=== PATIENT | male | born 1940 | race Caucasian/White ===

== ENCOUNTER 2020-07-08 11:49 | Emergency (ER) | payer MEDICARE, OTHER, SELFPAY ==
[2020-07-08 11:52] VITALS: BP 136/72; PULSE 50; RESP 15; TEMP 36.5; O2SAT 98
--- NOTE | 2020-07-08 12:09 | ED.GENADUL_ITS ---
Discharge Plan Disposition Patient Disposition: HOME Condition: Stable Discharge Details Clinical Impression: Rash Primary Care Provider: None,None ED Provider: Quinn Lara Home Meds and New Rx's Prescriptions: New doxycycline hyclate 100 mg tablet 100 mg PO BID Qty: 28 RF: 0 Continued timolol-latanoprost(PF) 0.5-0.005 % Drops OPHTHALMIC (EYE) BID RF: 0 Discharge Instructions Additional Instructions: Your exam is consistent with a likely skin reaction/irritation from the bite there is no indication of a skin infection or lyme disease if the tick panel test is positive start taking the doxycycline IF you do not get a call with results in 3 days you can call [phone] to see if the tick panel blood test is done and what the results are if you feel more ill, have fevers or difficulty breathing return to the emergency department Medical Decision Making 80 yo male comes in after he removed a tick from his left forearm Sunday. He states it couldn't have been attached more than an hour. He has a small area of redness about 1cm in diameter where the tick was. It has mild erythema and not warm to touch and no bulls eye appearance and no tenderness. He has no fevers body aches or other symptoms. It appears to be a local dermatitis, no findings to suggest cellulitis and no symptoms or bulls eye rash so doubt EM and given only an hour of attachment at most doubt tick born illness such as lyme. Discussed with the patient and at this time will send tick panel and hold on oral antibiotics and he declines any mupirocin which I feel is reasonable given no findings to suggest folliculitis. I will provide paper prescription for the patient for doxy if the tick panel returns positive he would be able to start it and that if he is not contacted within 3 days with results he should call [facility] for results. Return precautions given Differential Diagnosis Differential Diagnosis: dermatitis, cellulitis, tick born illness HPI General Mode of arrival: ambulatory . Date/Time Provider Initiated Documentation: 07/08/20 12:00 . Limitations to Documentation: no limitations . Information obtained by: patient . History of Present Illness 80 year old M presents to the emergency department with the chief complaint of right forearm rash, described as moderate, Patient started experiencing this day(s) (1) and it has been constant. No relieving factors improve symptom(s), No exacerbating factors reported . Patient notes no other symptoms.. Patient did receive the following treatments prior to arrival, none Related Data Home Medications Medication Instructions Recorded Confirmed doxycycline hyclate 100 mg PO BID #28 tab 07/08/20 timolol-latanoprost(PF) drp OPHTHALMIC (EYE) BID 07/08/20 Previous Rx's Medication Instructions Recorded doxycycline hyclate 100 mg PO BID #28 tab 07/08/20 Allergies Allergy/AdvReac Type Severity Reaction Status Date / Time Quinolones Allergy Unverified 07/08/20 12:11 General Stated Complaint: RashLesion ELLIOTT: 4 Review of Systems All systems reviewed & are unremarkable except as noted in HPI and below Constitutional Constitutional: Denies chills, Denies fever(s) and Denies weakness Cardiovascular Cardiovascular: Denies chest pain and Denies dyspnea Respiratory Respiratory: Denies cough and Denies dyspnea Gastrointestinal Gastrointestinal: Denies abdominal pain, Denies nausea and Denies vomiting Musculoskeletal Musculoskeletal: Denies joint swelling Neurologic Neurologic: Denies weakness Psychiatric Psychiatric: Denies depression PFS Social History Smoking/Tobacco Use Status: Never Smoking risk assessment performed?: Yes Alcohol Intake: current Alcohol Intake frequency: a few times a month Drug use: Never Exam Const General: no acute distress Orientation: alert HENMT Head: normal to inspection Ears: external ears normal General nose exam: external nose normal Mouth: moist mucous membranes Eyes General: appearance normal, both eyes and all related structures Neck Neck: normal visual inspection Resp Effort & Inspection: normal respiratory effort and able to speak in complete sentences Cardio Rate: regular rate Skin General skin exam: elasticity normal Neuro General: patient alert and patient oriented x3 Extrem General: normal to inspection Psych Mental Status: mental status grossly normal Course Vital Signs Vital signs: Vital Signs Temperature 36.5 C 07/08/20 11:52 Pulse 50 L 07/08/20 11:52 Respiratory Rate 15 07/08/20 11:52 Blood Pressure 136/72 07/08/20 11:52 Pulse Oximetry 98 07/08/20 11:52 Temperature 36.5 C 07/08/20 11:52 Temperature Source Temporal Artery Scan 07/08/20 11:52 Pulse 50 L 07/08/20 11:52 Respiratory Rate 15 07/08/20 11:52 Respiratory Effort Non-Labored 07/08/20 11:58 Blood Pressure 136/72 07/08/20 11:52 Blood Pressure Position Sitting 07/08/20 11:52 Pulse Oximetry 98 07/08/20 11:52 Oxygen Delivery Method Room Air 07/08/20 11:52 Oxygen Flow Rate 0 07/08/20 11:52 Pain Level 0 07/08/20 11:52
[2020-07-09 10:47] LABS: Lyme Ab w Rflx to Lyme Confirm Negative (Negative)
[2020-07-11 00:34] LABS: Anaplasma phagocytophilum Negative (Negative); B. miyamotoi PCR Negative (Negative); Babesia divergens/MO-1 Negative (Negative); Babesia duncani Negative (Negative); Babesia microti Negative (Negative); Ehrlichia chaffeensis Negative (Negative); Ehrlichia ewingii/canis Negative (Negative); Ehrlichia muris eauclairensis Negative (Negative)
--- NOTE | 2020-07-12 10:26 | NUR.NOTE ---
Nursing Note: Patient called asking for lyme and tick panel results. Reviewed the results with FRANK Valverde and patient was told that they were all negative. July Méndez
== END 2020-07-08 12:40 | disposition home or self-care (01) ==
LOC: ER 12:57
PROVIDERS: Emergency Provider Emergency Medicine
DX: R21 Rash and other nonspecific skin eruption (principal); S50.861A Insect bite (nonvenomous) of right forearm, initial encounter; W57.XXXA Bitten or stung by nonvenomous insect and other nonvenomous arthropods, initial encounter
CPT/HCPCS: 87798; 99283; 86618

== ENCOUNTER 2022-10-11 13:01 | Emergency (ER) | payer MEDICARE, SELFPAY ==
[2022-10-11 13:10] VITALS: BP 138/89; PULSE 77; RESP 16; TEMP 36.6; O2SAT 98
--- NOTE | 2022-10-11 13:15 | DI.RAD_ITS ---
Exam(s) XR CHEST 2V PA LATERAL EXAM: XR CHEST 2V PA LATERAL CLINICAL HISTORY: post covid malaise TECHNIQUE: 2D digital imaging was performed of the chest. Two images were obtained. PA and lateral views were obtained. COMPARISON: No exams were available for comparison FINDINGS: MEDIASTINUM: Normal. HEART: Normal. PULMONARY VASCULATURE: Normal. LUNGS: Clear. PLEURAL SPACE: No pleural effusion or pneumothorax. BONE:Within normal limits for the patient's age. OTHER FINDINGS:Normal. IMPRESSION: No acute pulmonary findings. DATA REPOSITORY: RADIATION DOSE DELIVERED:
--- NOTE | 2022-10-11 13:15 | RT.EKG_ITS ---
APPROVED REPORT Exam: Resting ECG Reason for Exam: Covid Patient Location: E HR:65 bpm ECG Measurements Heart Rate 65 AXIS AL 169 P 65 QRSd 99 QRS 89 QT 402 T 66 QTc 416 Conclusion Sinus rhythm..., V-rate 60- 99 Atrial premature complexes...SV complexes w/ short R-R intvls Appropriate intervals. No ST segment or T wave abnormalities to suggest occlusive NE
--- NOTE | 2022-10-11 13:19 | ED.GENADUL_ITS ---
Discharge Plan Disposition Patient Disposition: Home Condition: Good Discharge Details Chief Complaint: GenMedical Clinical Impression: Malaise Primary Care Provider: None,None ED Provider: Tamia Welch Home Meds and New Rx's Prescriptions: No Action timolol-latanoprost(PF) 0.5-0.005 % Drops OPHTHALMIC (EYE) BID doxycycline hyclate 100 mg tablet 100 mg PO BID Qty: 28 0RF Discharge Instructions Instructions: COVID-19 (Coronavirus Disease 2019) (ED) Additional Instructions: Call your primary care doctor today to schedule an appointment within one week to follow up on your visit here. Mention that your sodium was slightly low (133). Return to the emergency department for new or worsening symptoms including new/different/worse pain, difficulty breathing, or if you have any other concerns. Medical Decision Making Previously healthy 82 year old male denies prior medical conditions presents for persistent malaise post-COVID. COVID + 09/29, completed paxlovid 09/30- 10/04, rebound symptoms starting 10/06. General malaise and chest tightness since then, as well as less appetite than usual though he is keeping up with fluids. Vital signs reassuring with no tachycardia or hypoxia. Very well appearing and appears significantly younger than stated age. Suspect likely post-viral syndrome however given age well evaluate further with labs and CXR. Low suspicion for acute coronary syndrome; no tachycardia, hypoxia, or pleuritic pain to suggest pulmonary embolism, would not pursue further. EKG sinus rhythm no abnormalities to suggest occlusive GA or right heart strain. CBC normal with no leukocytosis or anemia, CMP reassuring, mild hyonatremia at 133 (would not workup or treat further on an emergent basis; advised PCP followup). Troponin normal; given persistent symptoms x several days not concerned for acute coronary syndrome and will not trend. CXR independently reviewed, no focal pneumonia on my view, agree with radiology read below. On reassessment patient remains well appearing with reassuring vital signs. Suspect post-viral/COVID malaise with reassuring workup here. Discharged home; discharge instructions including return precautions were reviewed with patient who verbalized understanding. Alll questions were answered and they are in full agreement with the plan. Imaging Data Radiologic Study: Imaging: X-Ray Radiologist's impression: IMPRESSION: No acute pulmonary findings Lab Data Lab results reviewed: Yes I reviewed the patient's lab results. Labs: Laboratory Tests Range/Units 10/11/22 10/11/22 13:20 13:20 WBC (4.4-10.8) 10^3/uL 6.61 RBC (4.36-5.78) 10^6/uL 4.72 Hgb (13.5-17.5) g/dL 14.8 Hct (40.0-50.0) % 42.3 MCV (80-95) fL 90 MCH (27.0-33.0) pg 31.4 MCHC (32.0-36.0) % 35.0 RDW (11.8-14.1) % 11.9 Plt Count (130-400) 10^3/uL 148 MPV (8.0-11.0) fL 11.0 Immature Gran % 0.3 Neutrophils % 54.1 Lymphocytes % 34.9 Monocytes % 8.9 Eosinophils % 1.2 Basophils % 0.6 Nucleated RBC % (0.0-0.3) % 0.0 Absolute Neutrophils (1.2-6.7) 10^3/uL 3.57 Absolute Lymphocytes (1.2-3.4) 10^3/uL 2.31 Absolute Monocytes (0.1-0.8) 10^3/uL 0.59 Absolute Eosinophils (0.0-0.7) 10^3/uL 0.08 Absolute Basophils (0.0-0.2) 10^3/uL 0.04 Sodium (136-145) mmol/L 133 L Potassium (3.5-5.1) mmol/L 4.0 Chloride (98-107) mmol/L 100 Carbon Dioxide (21.0-32.0) mmol/L 25.6 Anion Gap (3-11) mmol/L 7.4 BUN (7-18) mg/dL 17 Creatinine (0.70-1.30) mg/dL 1.1 Est GFR (CKD-EPI 2020) (mL/min/1.73m2) 67.86 Glucose (74-106) mg/dL 102 Calcium (8.5-10.1) mg/dL 8.7 Total Bilirubin (0.2-1.0) mg/dL 0.9 AST (15-37) U/L 24 ALT (16-63) U/L 28 Alkaline Phosphatase (46-116) U/L 67 Troponin I (<or=60) ng/L < 50 Total Protein (6.4-8.2) g/dL 7.7 Albumin (3.4-5.0) g/dL 3.8 HPI General Mode of arrival: ambulatory . Date/Time Provider Initiated Documentation: 10/11/22 13:08 . Limitations to Documentation: no limitations . Information obtained by: patient . HPI Narrative: Previously healthy 82 year old male denies prior medical conditions presents for persisent malaise post-COVID. Developed URI symptoms after flight; tested positive for Covid on Sep 29. Completed 5 day course of paxlovid. Symptoms improved on paxlovid. On 10/06 began to feel unwell; general fatigue and body aches as well as mild chest tightness which has been persistent since 10/06. No fevers, chills, rash, shortness of breath, palpitations, presyncope, LE edema, pleuritic pain, nausea, vomiting, abdominal pain, or other concerns. He is otherwise in his usual state of health. Related Data Home Medications Medication Instructions Recorded Confirmed doxycycline hyclate 100 mg tablet 100 mg PO BID #28 tabs 07/08/20 timolol 0.5 %-latanoprost 0.005 % drp ophthalmic (eye) BID 07/08/20 (PF) eye drops Previous Rx's Medication Instructions Recorded doxycycline hyclate 100 mg tablet 100 mg PO BID #28 tabs 07/08/20 Allergies Allergy/AdvReac Type Severity Reaction Status Date / Time Quinolones Allergy Unverified 07/08/20 12:11 General Stated Complaint: GenMedical ELLIOTT: 3 Review of Systems Narrative: see HPI PFSH All Active Problems (Updated 10/11/22 @ 14:20 by Tamia Welch MD) Rash (Acute) Malaise (Acute) Social History Smoking/Tobacco Use Status: Never Smoking risk assessment performed?: Yes Alcohol Intake: current Alcohol Intake frequency: a few times a month Drug use: Never Do you feel safe at home: Yes Do you feel safe in your relationship?: Yes Exam Narrative Exam Narrative: General: Alert, well appearing, well nourished, in no acute distress. Appears younger than stated age. Head: Normocephalic, atraumatic Neck: Trachea midline, Neck supple. ENT: MMM. No oropharygeal lesions or exudate. Cardiac: RRR, no murmurs appreciated Resp: No respiratory distress. CTAB. Abd: Soft, non-distended, nontender : No suprapubic tenderness. Extremities: No deformities. No peripheral edema. Neurologic: GCS 15. Moves all extremities freely against gravity Course Vital Signs Vital signs: Vital Signs Temperature 36.6 C 10/11/22 13:10 Pulse 77 10/11/22 13:10 Respiratory Rate 16 10/11/22 13:10 Blood Pressure 138/89 10/11/22 13:10 Pulse Oximetry 98 10/11/22 13:10 Temperature 36.6 C 10/11/22 13:10 Pulse 77 10/11/22 13:10 Respiratory Rate 16 10/11/22 13:10 Blood Pressure 138/89 10/11/22 13:10 Pulse Oximetry 98 10/11/22 13:10 Oxygen Delivery Method Room Air 10/11/22 13:10 Oxygen Flow Rate 0 10/11/22 13:10
[2022-10-11 13:30] VITALS: RESP 18
[2022-10-11 13:36] LABS: Abs Immature Grans 0.02 10^3/uL (0.0-0.06); Absolute Basophil Count 0.04 10^3/uL (0.0-0.2); Absolute Eosinophil Count 0.08 10^3/uL (0.0-0.7); Absolute Lymphocyte Count 2.31 10^3/uL (1.2-3.4); Absolute Monocyte Count 0.59 10^3/uL (0.1-0.8); Absolute Neutrophil Count 3.57 10^3/uL (1.2-6.7); Basophils % 0.6; Eosinophils % 1.2; HCT 42.3 % (40.0-50.0); HGB 14.8 g/dL (13.5-17.5); Immature Grans % 0.3; Lymphocytes % 34.9; MCH 31.4 pg (27.0-33.0); MCV 90 fL (80-95); Monocytes % 8.9; Neutrophils % 54.1; Platelet Count 148 10^3/uL (130-400); RBC 4.72 10^6/uL (4.36-5.78); RDW 11.9 % (11.8-14.1); RDW-SD 39.4 fL; WBC 6.61 10^3/uL (4.4-10.8)
[2022-10-11 14:07] LABS: ALT 28 U/L (16-63); AST 24 U/L (15-37); Albumin 3.8 g/dL (3.4-5.0); Alkaline Phosphatase 67 U/L (46-116); Anion Gap 7.4 mmol/L (3-11); BUN 17 mg/dL (7-18); Bilirubin, Total 0.9 mg/dL (0.2-1.0); CO2 25.6 mmol/L (21.0-32.0); CREATININE 1.1 mg/dL (0.70-1.30); Calcium 8.7 mg/dL (8.5-10.1); Chloride 100 mmol/L (98-107); Estimated GFR 67.86 (mL/min/1.73m2); Glucose 102 mg/dL (74-106); Sodium 133 mmol/L (136-145); Total Protein 7.7 g/dL (6.4-8.2); Troponin I < 50 ng/L (<or=60)
== END 2022-10-11 14:37 | disposition home or self-care (01) ==
PROVIDERS: Emergency Provider Student in an Organized Health Care Education/Training Program
DX: R07.9 Chest pain, unspecified (principal); G93.39 Other post infection and related fatigue syndromes; U09.9 Post COVID-19 condition, unspecified
CPT/HCPCS: 80053; 93005; 99285; 71046; 84484; 85025; 93010; 99283

== ENCOUNTER 2023-08-13 13:38 | Emergency (ER) | payer MEDICARE, SELFPAY ==
[2023-08-13 13:40] VITALS: BP 155/83; PULSE 84; RESP 15; TEMP 36.3; O2SAT 96
[2023-08-13 15:25] VITALS: BP 119/88; PULSE 60; RESP 17; O2SAT 97
--- NOTE | 2023-08-13 16:01 | ED.GENADUL_ITS ---
Discharge Plan Disposition Patient Disposition: Home Condition: Stable Discharge Details Clinical Impression: Tick bite Primary Care Provider: Unknown,Unknown ED Provider: Theresa Banerjee Home Meds and New Rx's Prescriptions: New doxycycline hyclate 100 mg capsule 100 mg PO BID Qty: 14 0RF Continued timolol-latanoprost(PF) 0.5-0.005 % Drops 1 drp OPHTHALMIC (EYE) BID Discharge Instructions Instructions: Lyme Disease Test Additional Instructions: take 200 mg of doxycycline for tick bite if tick has been attached for >36 hours, a single dose of doxycycline is reasonable keep prior tick bite clean and dry bacitracin topically return with spreading redness, fever, worsening pain HPI General Date/Time Provider Initiated Documentation: 08/13/23 14:38 . HPI Narrative: This 83-year-old male presents with tick bite she removed yesterday. His left thigh posteriorly. Presents with rash to the area. Unsure as to longevity of attachment. Suspects loss than 36 hours but unsure. Denies any additional complaints. Related Data Home Medications Medication Instructions Recorded Confirmed timolol 0.5 %-latanoprost 0.005 % 1 drp ophthalmic (eye) BID 07/08/20 08/13/23 (PF) eye drops doxycycline hyclate 100 mg capsule 100 mg PO BID #14 caps 08/13/23 Previous Rx's Medication Instructions Recorded doxycycline hyclate 100 mg capsule 100 mg PO BID #14 caps 08/13/23 Allergies Allergy/AdvReac Type Severity Reaction Status Date / Time Quinolones Allergy Unknown Unverified 08/13/23 13:44 General Stated Complaint: InsectBite ELLIOTT: 4 Exam Narrative Exam Narrative: Site of tick bite to left posterior thigh with rash macular no known, no erythema or evidence of erythema migrans, alert and oriented, ambulatory Course Vital Signs Vital signs: Vital Signs Temperature 36.3 C L 08/13/23 13:40 Pulse 84 08/13/23 13:40 Respiratory Rate 15 08/13/23 13:40 Blood Pressure 155/83 H 08/13/23 13:40 Pulse Oximetry 96 08/13/23 13:40 Temperature 36.3 C L 08/13/23 13:40 Temperature Source Temporal Artery Scan 08/13/23 13:40 Pulse 60 08/13/23 15:25 Respiratory Rate 17 08/13/23 15:25 Respiratory Effort Normal 08/13/23 13:46 Blood Pressure 119/88 08/13/23 15:25 Blood Pressure Position Sitting 08/13/23 13:40 Pulse Oximetry 97 08/13/23 15:25 Oxygen Delivery Method Room Air 08/13/23 13:40 Oxygen Flow Rate 0 08/13/23 13:40 Pain Level 0 08/13/23 15:25 Medical Decision Making Patient presenting post tick bite. patient given prescription for doxycycline, will take 200 mg of doxycycline prophylactically. Return precautions reviewed and patient expressed understanding Quality:SDOH Health Related Social Needs: No Data to Display PFSH All Active Problems (Updated 08/13/23 @ 16:02 by FRANK Briggs) Tick bite (Acute) Rash (Acute) Social History Smoking/Tobacco Use Status: Never Smoking risk assessment performed?: Yes Alcohol Intake: current Alcohol Intake frequency: a few times a month Drug use: Never Substance use type: does not use Do you feel safe at home: Yes Do you feel safe in your relationship?: Yes
== END 2023-08-13 16:18 | disposition home or self-care (01) ==
PROVIDERS: Emergency Provider Physician Assistant
DX: R21 Rash and other nonspecific skin eruption (principal); S70.362A Insect bite (nonvenomous), left thigh, initial encounter; W57.XXXA Bitten or stung by nonvenomous insect and other nonvenomous arthropods, initial encounter; Y93.89 Activity, other specified; Y92.018 Other place in single-family (private) house as the place of occurrence of the external cause
CPT/HCPCS: 99283